=== PATIENT | male | born 1975 | race Two or more races ===

== ENCOUNTER 2022-05-27 19:20 | Emergency (ER) | payer OTHER ==
[~2022-05-27] VITALS: Ht 182.9 cm; Wt 94.3 kg
== END 2022-05-27 22:22 | disposition home or self-care (01) ==
LOC: ER 19:20
DX: K29.70 Gastritis, unspecified, without bleeding (principal); Z88.6 Allergy status to analgesic agent; R07.9 Chest pain, unspecified; R20.0 Anesthesia of skin